=== PATIENT | male | born 1995 | race African-American/Black ===

== ENCOUNTER 2020-07-28 20:21 | Emergency (ER) | payer OTHER ==
[~2020-07-28] VITALS: Ht 172.7 cm; Wt 80.0 kg
[2020-07-28 20:54] VITALS: BP 124/81
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
== END 2020-07-28 23:02 | disposition home or self-care (01) ==
LOC: ER 20:21
DX: G89.11 Acute pain due to trauma (principal); R51.9 Headache, unspecified; M54.2 Cervicalgia; J45.909 Unspecified asthma, uncomplicated; V49.9XXA Car occupant (driver) (passenger) injured in unspecified traffic accident, initial encounter; Y93.89 Activity, other specified; Y92.413 State road as the place of occurrence of the external cause; Y99.8 Other external cause status
CPT/HCPCS: 99282

== ENCOUNTER 2020-08-25 11:31 | Inpatient (IN) | payer SELFPAY ==
[~2020-08-25] VITALS: Ht 175.3 cm; Wt 81.5 kg
--- NOTE | 2020-08-25 11:47 | PHYS DOC ---
Past Medical History Past Medical History: Asthma Past Surgical History: No Surgical History Smoking Status: Never Smoker Alcohol Use: None General Adult EDM: Chief Complaint: ASTHMA HPI: HPI: Patient is a 25 year old male presents emergency department acute exacerbation of asthma. Patient states it woke him up at 3 AM today. Patient states he has had 3-4 nebulizer treatments throughout the day. Patient states that he is not getting any better with his nebulizer treatments. Patient states he has never been admitted to the hospital before for his asthma. Patient states usually comes to the ER and receives a few breathing treatments and some prednisone and is at home with prednisone after he is feeling better. Patient denies any cough, chest congestion, chest pains at this time. Patient states he is only short of breath as related to his asthma exacerbation. Patient denies any recent fever or chills, denies any other physical complaints or physical co ncerns. Review of Systems: Review of Systems: 14 body systems of review of systems have been reviewed. See HPI for pertinent positives and negative responses, otherwise all other systems are negative, nonpertinent or noncontributory. Heart Score: Risk Factors: Risk Factors: DM, Current or recent (<one month) smoker, HTN, HLP, family history of CAD, obesity. Risk Scores: Score 0 - 3: 2.5% MACE over next 6 weeks - Discharge Home Score 4 - 6: 20.3% MACE over next 6 weeks - Admit for Clinical Observation Score 7 - 10: 72.7% MACE over next 6 weeks - Early Invasive Strategies Allergies: Allergies: Allergies Coded Allergies Type Severity Reaction Last Updated Verified No Known Drug Allergies 08/25/20 No Physical Exam: PE: Constitutional: Well developed, well nourished, patient in moderate respiratory distress, he is not tripoding, patient is speaking in full sentences, non-toxic appearance. HENT: Normocephalic, atraumatic, bilateral external ears normal, oropharynx moist, no oral exudates, nose normal. Eyes: PERRLA, EOMI, conjunctiva normal, no discharge. Neck: Normal range of motion, no tenderness, supple, no stridor. Cardiovascular:Heart rate regular rhythm, no murmur Lungs & Thorax: Audible I/E wheezing, per auscultation I/E wheezing bilateral upper lobes, lower lung negrete lung sounds diminished. Abdomen: Bowel sounds normal, soft, no tenderness, no masses, no pulsatile masses. Skin: Warm, dry, no erythema, no rash. Back: No tenderness, no CVA tenderness. Extremities: No tenderness, no cyanosis, no clubbing, ROM intact, no edema. Neurologic: Alert and oriented X 3, normal motor function, normal sensory function, no focal deficits noted. Psychologic: Affect normal, judgement normal, mood normal. Current Patient Data: Labs: Laboratory Tests Test 08/25/20 11:50 White Blood Count 6.4 x10^3/uL Red Blood Count 6.39 x10^6/uL Hemoglobin 14.8 g/dL Hematocrit 47.4 % Mean Corpuscular Volume 74 fL Mean Corpuscular Hemoglobin 23 pg Mean Corpuscular Hemoglobin Concent 31 g/dL Red Cell Distribution Width 15.2 % Platelet Count 243 x10^3/uL Neutrophils (%) (Auto) 67 % Lymphocytes (%) (Auto) 17 % Monocytes (%) (Auto) 7 % Eosinophils (%) (Auto) 9 % Basophils (%) (Auto) 1 % Neutrophils # (Auto) 4.3 x10^3/uL Lymphocytes # (Auto) 1.1 x10^3/uL Monocytes # (Auto) 0.4 x10^3/uL Eosinophils # (Auto) 0.6 x10^3/uL Basophils # (Auto) 0.0 x10^3/uL Sodium Level 143 mmol/L Potassium Level 4.0 mmol/L Chloride Level 105 mmol/L Carbon Dioxide Level 29 mmol/L Anion Gap 9 Blood Urea Nitrogen 18 mg/dL Creatinine 1.2 mg/dL Estimated GFR (Cockcroft-Gault) 87.9 BUN/Creatinine Ratio 15 Glucose Level 77 mg/dL Lactic Acid Level 3.5 mmol/L Calcium Level 9.4 mg/dL Total Bilirubin 0.4 mg/dL Aspartate Amino Transf (AST/SGOT) 23 U/L Alanine Aminotransferase (ALT/SGPT) 37 U/L Alkaline Phosphatase 57 U/L Total Protein 8.3 g/dL Albumin 3.9 g/dL Albumin/Globulin Ratio 0.9 Current Medications Medications (Trade) Dose Ordered Sig/Giovana Route PRN Reason Start Time Stop Time Status Last Admin Dose Admin Albuterol/ Ipratropium (Duoneb) 3 ml 1X ONCE NEB 08/25/20 12:00 08/25/20 12:01 DC 08/25/20 11:59 Prednisone (Prednisone) 60 mg 1X ONCE PO 08/25/20 12:00 08/25/20 12:01 DC 08/25/20 11:57 Albuterol Sulfate (Ventolin Neb Soln) 2.5 mg 1X ONCE NEB 08/25/20 12:00 08/25/20 12:01 DC 08/25/20 11:59 Albuterol/ Ipratropium (Duoneb) 3 ml STK-MED ONCE .ROUTE 08/25/20 11:51 08/25/20 11:51 DC Albuterol/ Ipratropium (Duoneb) 3 ml 1X ONCE NEB 08/25/20 12:30 08/25/20 12:32 DC 08/25/20 12:47 Albuterol/ Ipratropium (Duoneb) 3 ml 1X ONCE NEB 08/25/20 12:30 08/25/20 12:32 DC 08/25/20 12:30 EKG: EKG: [] Radiology/Procedures: Radiology/Procedures: STATUS: REG ER ORD. PHYSICIAN: WOLF CAUSEY DO REASON: soa PROCEDURE: CHEST AP ONLY XR CHEST 1V INDICATION: Reason: soa / Spl. Instructions: / History: . COMPARISON STUDY: None. FINDINGS: Lungs: Normal lung volume. No pulmonary mass or consolidation. The tracheobronchial tree and hilar structures are normal. Pleura: No pleural effusion or pneumothorax. Heart and Mediastinum: The cardiomediastinal silhouette is normal. The great vessels of the thorax are normal. Bones and Soft Tissues: The bones and soft tissues are within normal limits. IMPRESSION: No acute cardiopulmonary process. Electronically signed by: Angie Hernandez MD (08/25/2020 2:09 PM) [id number] DICTATED and SIGNED BY: ANGIE HERNANDEZ MD DATE: 08/25/20 [id number] 0 Course & Med Decision Making: Course & Med Decision Making Pertinent Labs and Imaging studies reviewed. (See chart for details) 25-year-old male presents emergency department status asthmaticus. Patient stated that he has never been admitted to the hospital for his asthma. Patient was started on A/A nebulizer treatments and given 40 mg of prednisone p.o. Upon reexamination of the patient only minimal improvement. Back to back albuterol nebulizer treatments were ordered. Upon reexamination of the patient, I/E wheezes all lung negrete, patient still in moderate respiratory distress, patient is not hypoxic, patient is tachycardic at a heart rate of 140 most likely related to albuterol and Atrovenkeon ordonez belies her treatments. Discussed with patient possibility of admission, patient states he is amenable for admission to the hospital for his asthma as he states he is not felt this bad in the past and has always had an easy turnaround with his asthma attacks. Hx x-ray was ordered and labs were ordered for admission. Discussed patient case with inpatient management Dr. Busch who agreed to assume patient care to telemetry for the diagnosis of status asthmaticus and tachycardia. Chest x-ray and labs pending at this time. ED bridge orders were initiated and completed, patient awaiting bed on telemetry unit at this time. Dragon Disclaimer: Dragon Disclaimer: This electronic medical record was generated, in whole or in part, using a voice recognition dictation system. Departure Departure Impression: Primary Impression: Status asthmaticus Qualified Codes: J45.42 - Moderate persistent asthma with status asthmaticus Additional Impression: Tachycardia Disposition: ADMITTED INPT THIS HOSP Admitting Physician: HIMS (Admit to Dr. Busch to the telemetry unit) Condition: GUARDED Referrals: NO PCP (PCP) SANTANA MORAN APRN Aug 25, 2020 11:47
[2020-08-25] MEDS ORDERED: IPRATRPIUM/ALBUTEROL 0.5/2.5MG 3 ML NEBU. ONE (11:51)
[2020-08-25] MEDS ORDERED: predniSONE 20 MG TABLET PO ONE (12:00)
[2020-08-25] MEDS ORDERED: IPRATRPIUM/ALBUTEROL 0.5/2.5MG 3 ML NEBU. NEB ONE ×3 (12:00→12:30)
[2020-08-25] MEDS ORDERED: ALBUTEROL SULFATE 2.5 MG/3 ML NEBU. NEB ONE (12:00)
--- NOTE | 2020-08-25 13:19 | PDOC1 ---
History and Physical Date of Admission Date of Admission DATE: 08/25/20 TIME: 13:18 Identification/Chief Complaint Chief Complaint seen in er with status asthmaticus, failed out patient management 25 year old male presents emergency department acute exacerbation of asthma. Patient states it woke him up at 3 AM today. Patient states he has had 3-4 nebulizer treatments throughout the day. Patient states that he is not getting any better with his nebulizer treatments. states usually comes to the ER and receives a few breathing treatments and some prednisone and is at home with prednisone after he is feeling better. denies any cough, chest congestion, chest pains at this time. Patient states he is only short of breath as related to his asthma exacerbation. Patient denies any recent fever or chills, Past Medical History Past Medical History Past Medical History Past Medical History Past Medical History: Asthma Past Surgical History: No Surgical History Smoking Status: Never Smoker Alcohol Use: None FHX HTN Pulmonary: Asthma, Bronchitis Psych: No pertinent hx Rheumatologic: No pertinent hx Infectious disease: No pertinent hx ENT: No pertinent hx Family History Family History: Hypertension Social History Smoke: No ALCOHOL: occassional Drugs: None Current Medications Current Medications Current Medications Albuterol/ Ipratropium (Duoneb) 3 ml 1X ONCE NEB Last administered on 1at 11:59; Start 08/25/20 at 12:00; Stop 08/25/20 at 12:01; Status DC Prednisone (Prednisone) 60 mg 1X ONCE PO Last administered on 08/25/20at 11:57; Start 08/25/20 at 12:00; Stop 08/25/20 at 12:01; Status DC Albuterol Sulfate (Ventolin Neb Soln) 2.5 mg 1X ONCE NEB Last administered on 08/25/20at 11:59; Start 08/25/20 at 12:00; Stop 08/25/20 at 12:01; Status DC Albuterol/ Ipratropium (Duoneb) 3 ml STK-MED ONCE .ROUTE ; Start 08/25/20 at 11:51; Stop 08/25/20 at 11:51; Status DC Albuterol/ Ipratropium (Duoneb) 3 ml 1X ONCE NEB Last administered on 08/25/20at 12:47; Start 08/25/20 at 12:30; Stop 08/25/20 at 12:32; Status DC Albuterol/ Ipratropium (Duoneb) 3 ml 1X ONCE NEB Last administered on 08/25/20at 12:30; Start 08/25/20 at 12:30; Stop 08/25/20 at 12:32; Status DC Allergies Allergies: Coded Allergies: No Known Drug Allergies (Unverified , 08/25/20) ROS Review of System 14 PT ROS OTHERWISE NEG General: YES: Fatigue; No: Chills, Night Sweats, Malaise, Appetite, Other PSYCHOLOGICAL ROS: No: Anxiety, Behavioral Disorder, Concentration difficultie, Decreased libido, Depression, Disorientation, Hallucinations, Hostility, Irritablity, Memory difficulties, Mood Swings, Obsessive thoughts, Physical abuse, Sexual abuse, Sleep disturbances, Suicidal ideation, Other Eyes: No Blurry vision, No Decreased vision, No Double vision, No Dry eyes, No Excessive tearing, No Eye Pain, No Itchy Eyes, No Loss of vision, No Photophobia, No Scotomata, No Uses contacts, No Uses glasses, No Other HEENT: No: Heacaches, Visual Changes, Hearing change, Nasal congestion, Nasal discharge, Oral lesions, Sinus pain, Sore Throat, Epistaxis, Sneezing, Snoring, Tinnitus, Vertigo, Vocal changes, Other ALLERGY AND IMMUNOLOGY: No: Hives, Insect Bite Sensitivity, Itchy/Watery Eyes, Nasal Congestion, Post Nasal Drip, Seasonal Allergies, Other Hematological and Lymphatic: No: Bleeding Problems, Blood Clots, Blood Transfusions, Brusing, Night Sweats, Pallor, Swollen Lymph Nodes, Other ENDOCRINE: No: Breast Changes, Galactorrhea, Hair Pattern Changes, Hot Flashes, Malaise/lethargy, Mood Swings, Palpitations, Polydipsia/polyuria, Skin Changes, Temperature Intolerance, Unexpected Weight Changes, Other Breast: No New/Changing Breast Lumps, No Nipple changes, No Nipple discharge, No Other Respiratory: YES: Shortness of breath, SOB with excertion, Wheezing Cardiovascular: No Chest Pain, No Palpitations, No Orthopnea, No Paroxysmal Noc. Dyspnea, No Edema, No Lt Headedness, No Other Gastrointestinal: No Nausea, No Vomiting, No Abdominal Pain, No Diarrhea, No Constipation, No Melena, No Hematochezia, No Other Genitourinary: No Dysuria, No Frequency, No Incontinence, No Hematuria, No Retention, No Discharge, No Urgency, No Pain, No Flank Pain, No Other, No , No , No , No , No , No , No Neurological: No Behavorial Changes, No Bowel/Bladder ControlChng, No Confusion, No Dizziness, No Gait Disturbance, No Headaches, No Impaired Coord/balance, No Memory Loss, No Numbness/Tingling, No Seizures, No Speech Problems, No Tremors, No Visual Changes, No Weakness, No Other Skin: No Dry Skin, No Eczema, No Hair Changes, No Lumps, No Mole Changes, No Mottling, No Nail Changes, No Pruritus, No Rash, No Skin Lesion Changes, No Other, No Acne Physical Exam Physical Exam Constitutional: Well developed, well nourished, patient in moderate respiratory distress, he is not tripoding, patient is speaking in full sentences, non-toxic appearance. HENT: Normocephalic, atraumatic, bilateral external ears normal, oropharynx moist, no oral exudates, nose normal. Eyes: PERRLA, EOMI, conjunctiva normal, no discharge. Neck: Normal range of motion, no tenderness, supple, no stridor. Cardiovascular:Heart rate regular rhythm, no murmur Lungs & Thorax: Audible I/E wheezing, per auscultation I/E wheezing bilateral upper lobes, lower lung negrete lung sounds diminished. Abdomen: Bowel sounds normal, soft, no tenderness, no masses, no pulsatile masses. Skin: Warm, dry, no erythema, no rash. Back: No tenderness, no CVA tenderness. Extremities: No tenderness, no cyanosis, no clubbing, ROM intact, no edema. Neurologic: Alert and oriented X 3, normal motor function, normal sensory function, no focal deficits noted. Psychologic: Affect normal, judgment normal, mood normal. General: Alert, Oriented X3, Cooperative, moderate distress HEENT: EOMI, Mucous membr. moist/pink Heart: RRR Breasts: Not examined Abdomen: Normal bowel sounds, Soft, No tenderness, No hepatosplenomegaly Rectal Exam: not examined PELVIC: Examination not indicated Extremities: No cyanosis Neuro: Normal speech, Strength at 5/5 X4 ext, Sensation intact, Cranial nerves 3-12 NL Psych/Mental Status: Mental status NL, Mood NL Vitals Vitals Vital Signs Date Time Temp Pulse Resp B/P (MAP) Pulse Ox O2 Delivery O2 Flow Rate FiO2 08/25/20 12:47 Room Air 08/25/20 11:45 98.8 120 28 151/79 (103) 97 98.8 Images Images PATIENT: DEJA GUTIERREZ ACCOUNT: [id number] : 1995 LOCATION: ER AGE: 25 SEX: M EXAM STATUS: REG ER ORD. PHYSICIAN: WOLF CAUSEY DO REASON: soa PROCEDURE: CHEST AP ONLY XR CHEST 1V INDICATION: Reason: soa / Spl. Instructions: / History: . COMPARISON STUDY: None. FINDINGS: Lungs: Normal lung volume. No pulmonary mass or consolidation. The tracheobronchial tree and hilar structures are normal. Pleura: No pleural effusion or pneumothorax. Heart and Mediastinum: The cardiomediastinal silhouette is normal. The great vessels of the thorax are normal. Bones and Soft Tissues: The bones and soft tissues are within normal limits. IMPRESSION: No acute cardiopulmonary process. Electronically signed by: Angie Hernandez MD (08/25/2020 2:09 PM) [id number] DICTATED and SIGNED BY: ANGIE HERNANDEZ MD DATE: 08/25/20 [id number] VTE Prophylaxis Ordered VTE Prophylaxis Devices: Yes VTE Pharmacological Prophylaxi: Yes Assessment/Plan Assessment/Plan impression 1. Status ASTHMATICUS 2. PUI COVID 19 PLAN ADMIT IV STEROID TAPER PULM CONSULT budesonide 0.5 mg bid nebs albuterol q 4 hrs nebs dvt prophylaxis GI PROPHYLAXIS D/W ER DR Justifications for Admission Other Justification ERENDIRA CARTER MD Aug 25, 2020 13:19
[2020-08-25 13:55] LABS: BASO % 1 % (0-3); CALCIUM 9.4 mg/dL (8.5-10.1); CREATININE 1.2 mg/dL (0.7-1.3); EOS # 0.6 x10^3/uL (0.0-0.7); EOS % 9 % (0-3); GFR 87.9; HEMATOCRIT 47.4 % (39.0-53.0); HEMOGLOBIN 14.8 g/dL (13.0-17.5); LYMPH # 1.1 x10^3/uL (1.0-4.8); LYMPH % 17 % (24-48); MEAN CORPUSCULAR HEMOGLOBIN 23 pg (25-35); MEAN CORPUSCULAR HGB CONC 31 g/dL (31-37); MEAN CORPUSCULAR VOLUME 74 fL (79-100); MONO # 0.4 x10^3/uL (0.0-1.1); MONO % 7 % (0-9); NEUT # 4.3 x10^3/uL (1.8-7.7); NEUT % 67 % (31-73); PLATELET COUNT 243 x10^3/uL (140-400); RED BLOOD COUNT 6.39 x10^6/uL (4.30-5.70); RED CELL DISTRIBUTION WIDTH 15.2 % (11.5-14.5); WHITE BLOOD COUNT 6.4 x10^3/uL (4.0-11.0)
[2020-08-25 13:59] LABS: ALBUMIN 3.9 g/dL (3.4-5.0); ALBUMIN/GLOBULIN RATIO 0.9 (1.0-1.7); TOTAL BILIRUBIN 0.4 mg/dL (0.2-1.0); TOTAL PROTEIN 8.3 g/dL (6.4-8.2)
--- NOTE | 2020-08-25 14:11 | RAD ---
XR CHEST 1V INDICATION: Reason: soa / Spl. Instructions: / History: . COMPARISON STUDY: None. FINDINGS: Lungs: Normal lung volume. No pulmonary mass or consolidation. The tracheobronchial tree and hilar st ructures are normal. Pleura: No pleural effusion or pneumothorax. Heart and Mediastinum: The cardiomediastinal silhouette is normal. The great vessels of the thorax ar e normal. Bones and Soft Tissues: The bones and soft tissues are within normal limits. IMPRESSION: No acute cardiopulmonary process. Electronically signed by: Hayden Hernandez MD (08/25/2020 2:09 PM) [id number]
[2020-08-25 15:30] VITALS: BP 116/63
[2020-08-25] MEDS ORDERED: ACETAMINOPHEN 325 MG TABLET. PO PRN (15:30)
[2020-08-25] MEDS ORDERED: ALBUTEROL SULFATE 2.5 MG/3 ML NEBU. NEB PRN (15:30)
[2020-08-25] MEDS ORDERED: ONDANSETRON PF 4 MG/2 ML VIAL. IV PRN (15:30)
[2020-08-25] MEDS ORDERED: cloNIDine HCL 0.1 MG TABLET PO PRN (15:30)
[2020-08-25] MEDS ORDERED: guaiFENesin ORAL 200 MG/10 ML LIQUID. PO PRN (15:30)
[2020-08-25] MEDS ORDERED: MAG HYDROX/ALUMINUM HYD/SIMETH 30 ML ORAL.SUSP PO PRN (15:30)
[2020-08-25] MEDS ORDERED: SODIUM PHOSPHATES 19/7GM 133 ML ENEMA. PR PRN (15:30)
[2020-08-25] MEDS ORDERED: 0.9 % SODIUM CHLORIDE 10 ML DISP.SYRIN. IV PRN (15:30)
[2020-08-25] MEDS ORDERED: DOCUSATE SODIUM 100 MG CAPSULE. PO PRN (15:30)
[2020-08-25] MEDS: IV NORMAL SALINE 1000ML BAG 1,000 ML IV SCH (15:57)
[2020-08-25 19:00] VITALS: BP 134/88
--- NOTE | 2020-08-25 19:02 | CONS ---
DATE OF CONSULTATION: 08/25/2020 PULMONARY CONSULTATION ATTENDING PHYSICIAN: Dr. Delfino Busch. REASON FOR CONSULTATION: Asthma exacerbation. HISTORY OF PRESENT ILLNESS: The patient is a 25-year-old male with history of asthma as a child. He said that he had no problem during his adult life. He woke up 3:00 in the morning, was complaining of shortness of breath and wheezing. He did nebulizer treatments throughout the day, but it did not improve. As a result, he was seen in the Emergency Room where breathing treatments were given to him. He states he is feeling much better. He has a mild postnasal drainage, which is now resolved. He says he does not have any cough, chest pain, no syncope. He has not had any hospitalizations since his childhood. His chest x-ray did not reveal any infiltrate. He wants to go home as he has 3 kids. His COVID test is pending. PAST MEDICAL HISTORY: History of asthma. PAST SURGICAL HISTORY: None. SOCIAL HISTORY: Nonsmoker. ALLERGIES: None. MEDICATIONS: Reviewed as listed in the [facility] including IV Solu-Medrol and albuterol nebs. REVIEW OF SYSTEMS: Ten-point system obtained. Pertinent positives discussed in my history of present illness, otherwise noncontributory. All systems that were negative were reviewed as well. SOCIAL HISTORY: Nonsmoker. PHYSICAL EXAMINATION: VITAL SIGNS: Reviewed. Afebrile, blood pressure stable, pulse oximetry 98% on room air. GENERAL: Visual exam done via telemedicine. No obvious respiratory distress. EXTREMITIES: No leg edema, no skin rash. Chest x-ray is clear. LABORATORY DATA: Reviewed. White cell count 6.4, hemoglobin 14.8 and platelets are 243. IMPRESSION: 1. The patient with history of asthma as a child, but never had any problem in adult life. Comes in with asthma exacerbation without any obvious trigger. No clinical suspicion for COVID. No pneumonia or acute bronchitis. Clinically much better after nebulizer treatments. He wants to go home to be with his 3 kids. 2. No significant tobacco history. RECOMMENDATIONS: 1. From a pulmonary standpoint, he is doing well. He could be discharged home on his albuterol nebulizer and a tapering dose of prednisone. 2. The patient wants to go home as he has 3 kids to take care of. 3. I have discussed with RN, who can communicate to the patient's hospitalist and he is cleared lung coburn to be discharged. AVI MCGEE MD DR: DAKSHA/nolberto JOB#: [id number] / [id number]
[2020-08-25] MEDS ORDERED: IV NORMAL SALINE 1000ML BAG 1,000 ML IV ONE (19:15)
[2020-08-25] MEDS: methylPREDNISolone SOD SUCC PF 125 MG/2 ML VIAL. IV SCH (20:35)
[2020-08-25] MEDS ORDERED: ENOXAPARIN 40 MG/0.4 ML SYRINGE. SQ SCH (21:00)
[2020-08-25 23:00] VITALS: BP 135/80
[2020-08-26] MEDS: IV NORMAL SALINE 1000ML BAG 1,000 ML IV SCH ×2 (01:30→11:29)
[2020-08-26 03:08] LABS: BILIRUBIN,URINE NEGATIVE (NEG); CLARITY,URINE CLEAR; COLOR,URINE YELLOW; NITRITE,URINE NEGATIVE (NEG); PROTEIN,URINE NEGATIVE (NEG-TRACE); UROBILINOGEN,URINE 0.2 mg/dL (0.2 mg/dL)
[2020-08-26 03:14] LABS: BARBITURATES NEG (NEG); BENZODIAZEPINES NEG (NEG); CANNABINOIDS POS (NEG); COCAINE NEG (NEG); METHADONE NEG (NEG); OPIATES NEG (NEG); PHENCYCLIDINE NEG (NEG)
[2020-08-26 03:16] VITALS: BP 155/75
[2020-08-26 03:18] LABS: BACTERIA,URINE 0 /HPF (0-FEW); RBC,URINE 0 /HPF (0-2); WBC,URINE 0 /HPF (0-4)
[2020-08-26 03:22] LABS: AMPHETAMINE/METHAMPHETAMINE NEG (NEG)
[2020-08-26] MEDS: methylPREDNISolone SOD SUCC PF 125 MG/2 ML VIAL. IV SCH (06:25)
[2020-08-26 07:14] VITALS: BP 130/69
[2020-08-26 11:14] VITALS: BP 152/76
--- NOTE | 2020-08-26 11:17 | PDOC ---
PROGRESS NOTES Date of Service: DATE: 08/26/20 TIME: 11:16 Chief Complaint Chief Complaint VTE Prophylaxis Ordered VTE Prophylaxis Devices: Yes VTE Pharmacological Prophylaxi: Yes DISCHARGE DX Assessment/Plan impression 1. Status ASTHMATICUS 2. PUI COVID 19 3. LACTIC ACIDOSIS FROM DEHYDRATION, CONT IV FLUID SUPPORT, DOSE ZITHROMAX 4. DEHYDRATION 5. SVT from dehydration PLAN ADMIT PO STEROID TAPER PULM CONSULT budesonide 0.5 mg bid nebs albuterol q 4 hrs nebs dvt prophylaxis GI PROPHYLAXIS iv fluid support 08/26 INSISTS ON DISCHARGE TODAY D/C PLANNING 23 MIN D/W RN Justifications for Admission Justifications for Admission Other Justification History of Present Illness History of Present Illness Identification/Chief Complaint Chief Complaint seen in er with status asthmaticus, failed out patient management 25 year old male presents emergency department acute exacerbation of asthma. Patient states it woke him up at 3 AM today. Patient states he has had 3-4 nebulizer treatments throughout the day. Patient states that he is not getting any better with his nebulizer treatments. states usually comes to the ER and receives a few breathing treatments and some prednisone and is at home with prednisone after he is feeling better. denies any cough, chest congestion, chest pains at this time. Patient states he is only short of breath as related to his asthma exacerbation. Patient denies any recent fever or chills, Past Medical History Past Medical History Past Medical History Past Medical History Past Medical History: Asthma Past Surgical History: No Surgical History Smoking Status: Never Smoker Alcohol Use: None FHX HTN Pulmonary: Asthma, Bronchitis Psych: No pertinent hx Rheumatologic: No pertinent hx Infectious disease: No pertinent hx ENT: No pertinent hx Family History Family History: Hypertension Social History Smoke: No ALCOHOL: occassional Drugs: None Vitals Vitals Vital Signs Date Time Temp Pulse Resp B/P (MAP) Pulse Ox O2 Delivery O2 Flow Rate FiO2 08/26/20 08:00 Room Air 08/26/20 07:14 96.4 107 16 130/69 (89) 98 96.4 Physical Exam General: Alert, Oriented X3, Cooperative, No acute distress Heart: Regular rate, No murmurs Lungs: Clear Abdomen: Normal bowel sounds, Soft, No tenderness, No hepatosplenomegaly Extremities: No cyanosis Skin: No rashes Labs LABS Laboratory Tests Test 08/25/20 11:50 08/25/20 18:10 08/26/20 02:49 08/26/20 10:23 White Blood Count 6.4 x10^3/uL (4.0-11.0) Red Blood Count 6.39 x10^6/uL (4.30-5.70) Hemoglobin 14.8 g/dL (13.0-17.5) Hematocrit 47.4 % (39.0-53.0) Mean Corpuscular Volume 74 fL (79-100) Mean Corpuscular Hemoglobin 23 pg (25-35) Mean Corpuscular Hemoglobin Concent 31 g/dL (31-37) Red Cell Distribution Width 15.2 % (11.5-14.5) Platelet Count 243 x10^3/uL (140-400) Neutrophils (%) (Auto) 67 % (31-73) Lymphocytes (%) (Auto) 17 % (24-48) Monocytes (%) (Auto) 7 % (0-9) Eosinophils (%) (Auto) 9 % (0-3) Basophils (%) (Auto) 1 % (0-3) Neutrophils # (Auto) 4.3 x10^3/uL (1.8-7.7) Lymphocytes # (Auto) 1.1 x10^3/uL (1.0-4.8) Monocytes # (Auto) 0.4 x10^3/uL (0.0-1.1) Eosinophils # (Auto) 0.6 x10^3/uL (0.0-0.7) Basophils # (Auto) 0.0 x10^3/uL (0.0-0.2) D-Dimer (Kitty) 0.39 ug/mlFEU (0.00-0.50) Sodium Level 143 mmol/L (136-145) Potassium Level 4.0 mmol/L (3.5-5.1) Chloride Level 105 mmol/L (98-107) Carbon Dioxide Level 29 mmol/L (21-32) Anion Gap 9 (6-14) Blood Urea Nitrogen 18 mg/dL (8-26) Creatinine 1.2 mg/dL (0.7-1.3) Estimated GFR (Cockcroft-Gault) 87.9 BUN/Creatinine Ratio 15 (6-20) Glucose Level 77 mg/dL (70-99) Lactic Acid Level 3.5 mmol/L (0.4-2.0) 6.8 mmol/L (0.4-2.0) 1.8 mmol/L (0.4-2.0) Calcium Level 9.4 mg/dL (8.5-10.1) Total Bilirubin 0.4 mg/dL (0.2-1.0) Aspartate Amino Transf (AST/SGOT) 23 U/L (15-37) Alanine Aminotransferase (ALT/SGPT) 37 U/L (16-63) Alkaline Phosphatase 57 U/L (46-116) Total Protein 8.3 g/dL (6.4-8.2) Albumin 3.9 g/dL (3.4-5.0) Albumin/Globulin Ratio 0.9 (1.0-1.7) Urine Collection Type Unknown Urine Color Yellow Urine Clarity Clear Urine pH 6.0 (<5.0-8.0) Urine Specific Roslyn >=1.030 (1.000-1.030) Urine Protein Negative mg/dL (NEG-TRACE) Urine Glucose (UA) Negative mg/dL (NEG) Urine Ketones (Stick) 15 mg/dL (NEG) Urine Blood Negative (NEG) Urine Nitrite Negative (NEG) Urine Bilirubin Negative (NEG) Urine Urobilinogen Dipstick 0.2 mg/dL (0.2 mg/dL) Urine Leukocyte Esterase Negative (NEG) Urine RBC 0 /HPF (0-2) Urine WBC 0 /HPF (0-4) Urine Squamous Epithelial Cells Few /LPF Urine Bacteria 0 /HPF (0-FEW) Urine Mucus Slight /LPF Urine Opiates Screen Neg (NEG) Urine Methadone Screen Neg (NEG) Urine Barbiturates Neg (NEG) Urine Phencyclidine Screen Neg (NEG) Urine Amphetamine/Methamphetamine Neg (NEG) Urine Benzodiazepines Screen Neg (NEG) Urine Cocaine Screen Neg (NEG) Urine Cannabinoids Screen Pos (NEG) Urine Ethyl Alcohol Neg (NEG) Assessment and Plan Assessmemt and Plan Problems Medical Problems: (1) Status asthmaticus Status: Acute (2) Tachycardia Status: Acute Comment Review of Relevant I have reviewed the following items sukhdeep (where applicable) has been applied. Labs Laboratory Tests Test 08/25/20 11:50 08/25/20 18:10 08/26/20 02:49 08/26/20 10:23 White Blood Count 6.4 x10^3/uL (4.0-11.0) Red Blood Count 6.39 x10^6/uL (4.30-5.70) Hemoglobin 14.8 g/dL (13.0-17.5) Hematocrit 47.4 % (39.0-53.0) Mean Corpuscular Volume 74 fL (79-100) Mean Corpuscular Hemoglobin 23 pg (25-35) Mean Corpuscular Hemoglobin Concent 31 g/dL (31-37) Red Cell Distribution Width 15.2 % (11.5-14.5) Platelet Count 243 x10^3/uL (140-400) Neutrophils (%) (Auto) 67 % (31-73) Lymphocytes (%) (Auto) 17 % (24-48) Monocytes (%) (Auto) 7 % (0-9) Eosinophils (%) (Auto) 9 % (0-3) Basophils (%) (Auto) 1 % (0-3) Neutrophils # (Auto) 4.3 x10^3/uL (1.8-7.7) Lymphocytes # (Auto) 1.1 x10^3/uL (1.0-4.8) Monocytes # (Auto) 0.4 x10^3/uL (0.0-1.1) Eosinophils # (Auto) 0.6 x10^3/uL (0.0-0.7) Basophils # (Auto) 0.0 x10^3/uL (0.0-0.2) D-Dimer (Kitty) 0.39 ug/mlFEU (0.00-0.50) Sodium Level 143 mmol/L (136-145) Potassium Level 4.0 mmol/L (3.5-5.1) Chloride Level 105 mmol/L (98-107) Carbon Dioxide Level 29 mmol/L (21-32) Anion Gap 9 (6-14) Blood Urea Nitrogen 18 mg/dL (8-26) Creatinine 1.2 mg/dL (0.7-1.3) Estimated GFR (Cockcroft-Gault) 87.9 BUN/Creatinine Ratio 15 (6-20) Glucose Level 77 mg/dL (70-99) Lactic Acid Level 3.5 mmol/L (0.4-2.0) 6.8 mmol/L (0.4-2.0) 1.8 mmol/L (0.4-2.0) Calcium Level 9.4 mg/dL (8.5-10.1) Total Bilirubin 0.4 mg/dL (0.2-1.0) Aspartate Amino Transf (AST/SGOT) 23 U/L (15-37) Alanine Aminotransferase (ALT/SGPT) 37 U/L (16-63) Alkaline Phosphatase 57 U/L (46-116) Total Protein 8.3 g/dL (6.4-8.2) Albumin 3.9 g/dL (3.4-5.0) Albumin/Globulin Ratio 0.9 (1.0-1.7) Urine Collection Type Unknown Urine Color Yellow Urine Clarity Clear Urine pH 6.0 (<5.0-8.0) Urine Specific Roslyn >=1.030 (1.000-1.030) Urine Protein Negative mg/dL (NEG-TRACE) Urine Glucose (UA) Negative mg/dL (NEG) Urine Ketones (Stick) 15 mg/dL (NEG) Urine Blood Negative (NEG) Urine Nitrite Negative (NEG) Urine Bilirubin Negative (NEG) Urine Urobilinogen Dipstick 0.2 mg/dL (0.2 mg/dL) Urine Leukocyte Esterase Negative (NEG) Urine RBC 0 /HPF (0-2) Urine WBC 0 /HPF (0-4) Urine Squamous Epithelial Cells Few /LPF Urine Bacteria 0 /HPF (0-FEW) Urine Mucus Slight /LPF Urine Opiates Screen Neg (NEG) Urine Methadone Screen Neg (NEG) Urine Barbiturates Neg (NEG) Urine Phencyclidine Screen Neg (NEG) Urine Amphetamine/Methamphetamine Neg (NEG) Urine Benzodiazepines Screen Neg (NEG) Urine Cocaine Screen Neg (NEG) Urine Cannabinoids Screen Pos (NEG) Urine Ethyl Alcohol Neg (NEG) Laboratory Tests Test 1/11/21 11:50 08/25/20 18:10 08/26/20 02:49 08/26/20 10:23 White Blood Count 6.4 x10^3/uL (4.0-11.0) Red Blood Count 6.39 x10^6/uL (4.30-5.70) Hemoglobin 14.8 g/dL (13.0-17.5) Hematocrit 47.4 % (39.0-53.0) Mean Corpuscular Volume 74 fL (79-100) Mean Corpuscular Hemoglobin 23 pg (25-35) Mean Corpuscular Hemoglobin Concent 31 g/dL (31-37) Red Cell Distribution Width 15.2 % (11.5-14.5) Platelet Count 243 x10^3/uL (140-400) Neutrophils (%) (Auto) 67 % (31-73) Lymphocytes (%) (Auto) 17 % (24-48) Monocytes (%) (Auto) 7 % (0-9) Eosinophils (%) (Auto) 9 % (0-3) Basophils (%) (Auto) 1 % (0-3) Neutrophils # (Auto) 4.3 x10^3/uL (1.8-7.7) Lymphocytes # (Auto) 1.1 x10^3/uL (1.0-4.8) Monocytes # (Auto) 0.4 x10^3/uL (0.0-1.1) Eosinophils # (Auto) 0.6 x10^3/uL (0.0-0.7) Basophils # (Auto) 0.0 x10^3/uL (0.0-0.2) D-Dimer (Kitty) 0.39 ug/mlFEU (0.00-0.50) Sodium Level 143 mmol/L (136-145) Potassium Level 4.0 mmol/L (3.5-5.1) Chloride Level 105 mmol/L (98-107) Carbon Dioxide Level 29 mmol/L (21-32) Anion Gap 9 (6-14) Blood Urea Nitrogen 18 mg/dL (8-26) Creatinine 1.2 mg/dL (0.7-1.3) Estimated GFR (Cockcroft-Gault) 87.9 BUN/Creatinine Ratio 15 (6-20) Glucose Level 77 mg/dL (70-99) Lactic Acid Level 3.5 mmol/L (0.4-2.0) 6.8 mmol/L (0.4-2.0) 1.8 mmol/L (0.4-2.0) Calcium Level 9.4 mg/dL (8.5-10.1) Total Bilirubin 0.4 mg/dL (0.2-1.0) Aspartate Amino Transf (AST/SGOT) 23 U/L (15-37) Alanine Aminotransferase (ALT/SGPT) 37 U/L (16-63) Alkaline Phosphatase 57 U/L (46-116) Total Protein 8.3 g/dL (6.4-8.2) Albumin 3.9 g/dL (3.4-5.0) Albumin/Globulin Ratio 0.9 (1.0-1.7) Urine Collection Type Unknown Urine Color Yellow Urine Clarity Clear Urine pH 6.0 (<5.0-8.0) Urine Specific Roslyn >=1.030 (1.000-1.030) Urine Protein Negative mg/dL (NEG-TRACE) Urine Glucose (UA) Negative mg/dL (NEG) Urine Ketones (Stick) 15 mg/dL (NEG) Urine Blood Negative (NEG) Urine Nitrite Negative (NEG) Urine Bilirubin Negative (NEG) Urine Urobilinogen Dipstick 0.2 mg/dL (0.2 mg/dL) Urine Leukocyte Esterase Negative (NEG) Urine RBC 0 /HPF (0-2) Urine WBC 0 /HPF (0-4) Urine Squamous Epithelial Cells Few /LPF Urine Bacteria 0 /HPF (0-FEW) Urine Mucus Slight /LPF Urine Opiates Screen Neg (NEG) Urine Methadone Screen Neg (NEG) Urine Barbiturates Neg (NEG) Urine Phencyclidine Screen Neg (NEG) Urine Amphetamine/Methamphetamine Neg (NEG) Urine Benzodiazepines Screen Neg (NEG) Urine Cocaine Screen Neg (NEG) Urine Cannabinoids Screen Pos (NEG) Urine Ethyl Alcohol Neg (NEG) Medications Current Medications Albuterol/ Ipratropium (Duoneb) 3 ml 1X ONCE NEB Last administered on 08/25/20at 11:59; Start 08/25/20 at 12:00; Stop 08/25/20 at 12:01; Status DC Prednisone (Prednisone) 60 mg 1X ONCE PO Last administered on 08/25/20at 11:57; Start 08/25/20 at 12:00; Stop 08/25/20 at 12:01; Status DC Albuterol Sulfate (Ventolin Neb Soln) 2.5 mg 1X ONCE NEB Last administered on 08/25/20at 11:59; Start 08/25/20 at 12:00; Stop 08/25/20 at 12:01; Status DC Albuterol/ Ipratropium (Duoneb) 3 ml STK-MED ONCE .ROUTE ; Start 08/25/20 at 11:51; Stop 08/25/20 at 11:51; Status DC Albuterol/ Ipratropium (Duoneb) 3 ml 1X ONCE NEB Last administered on 08/25/20at 12:47; Start 08/25/20 at 12:30; Stop 08/25/20 at 12:32; Status DC Albuterol/ Ipratropium (Duoneb) 3 ml 1X ONCE NEB Last administered on 08/25/20at 12:30; Start 08/25/20 at 12:30; Stop 08/25/20 at 12:32; Status DC Sodium Chloride (Normal Saline Flush) 3 ml QSHIFT PRN IV AFTER MEDS AND BLOOD DRAWS; Start 08/25/20 at 15:30 Sodium Chloride 1,000 ml @ 100 mls/hr Q10H IV Last administered on 08/26/20at 01:30; Start 08/25/20 at 15:30 Ondansetron HCl (Zofran) 4 mg PRN Q4HRS PRN IV NAUSEA/VOMITING; Start 08/25/20 at 15:30 Acetaminophen (Tylenol) 650 mg PRN Q4HRS PRN PO TEMP OVER 100.4F OR MILD PAIN; Start 08/25/20 at 15:30 Al Hydroxide/Mg Hydroxide (Mylanta Plus Xs) 30 ml PRN DAILY PRN PO HEARTBURN / GAS; Start 08/25/20 at 15:30 Clonidine HCl (Catapres) 0.1 mg PRN Q6HRS PRN PO SBP>160 OR DBP>90; Start 08/25/20 at 15:30 Sodium Monofluorophosphate (Fleet Adult) 133 ml PRN DAILY PRN [place] CONSTIPATION; Start 08/25/20 at 15:30 Docusate Sodium (Colace) 100 mg PRN BID PRN PO HARD STOOLS; Start 08/25/20 at 15:30 Albuterol Sulfate (Ventolin Neb Soln) 2.5 mg PRN Q4HRS PRN NEB SHORTNESS OF BREATH; Start 08/25/20 at 15:30 Guaifenesin (Robitussin) 200 mg PRN Q4HRS PRN PO COUGH; Start 08/25/20 at 15:30 Enoxaparin Sodium (Lovenox 40mg Syringe) 40 mg Q24H SQ Last administered on 08/25/20at 20:36; Start 08/25/20 at 21:00 Methylprednisolone Sodium Succinate (SOLU-Medrol 125MG VIAL) 125 mg Q8HRS IV Last administered on 08/26/20at 06:25; Start 08/25/20 at 22:00 Sodium Chloride 1,000 ml @ 999 mls/hr 1X ONCE IV Last administered on 08/25/20at 20:35; Start 08/25/20 at 19:15; Stop 08/25/20 at 20:15; Status DC Vitals/I & O Vital Sign - Last 24 Hours 08/25/20 08/25/20 08/25/20 08/25/20 11:45 11:55 12:00 12:11 Temp 98.8 98.8 Pulse 120 118 Resp 28 B/P (MAP) 151/79 (103) 133/100 (111) Pulse Ox 97 99 O2 Delivery Room Air Room Air Room Air 08/25/20 08/25/20 08/25/20 08/25/20 12:41 12:45 12:47 13:11 Pulse 112 138 Resp 24 B/P (MAP) 133/81 (98) 136/79 (98) Pulse Ox 99 98 O2 Delivery Room Air Room Air 08/25/20 08/25/20 08/25/20 08/25/20 13:41 15:30 19:00 20:00 Temp 98.6 96.5 98.6 96.5 Pulse 126 113 126 Resp 20 14 10 B/P (MAP) 134/68 (90) 116/63 (80) 134/88 (103) Pulse Ox 96 98 98 O2 Delivery Room Air Room Air Room Air 08/25/20 08/26/20 08/26/20 08/26/20 23:00 03:16 07:14 08:00 Temp 97.5 97.1 96.4 97.5 97.1 96.4 Pulse 121 95 107 Resp 16 12 16 B/P (MAP) 135/80 (98) 155/75 (101) 130/69 (89) Pulse Ox 95 96 98 O2 Delivery Room Air Room Air Room Air Room Air Intake and Output 08/25/20 08/25/20 08/26/20 15:00 23:00 07:00 Intake Total 200 ml 0 ml Output Total 1 ml Balance 199 ml 0 ml Justicifation of Admission Dx: Justifications for Admission: Justification of Admission Dx: No ERENDIRA CARTER MD Aug 26, 2020 11:17
[2020-08-26] MEDS ORDERED: AZITHRMYCN 500MG IVPB FOR OMNI 250 ML IV ONE (11:30)
[2020-08-26] MEDS: AZITHROMYCIN 500 MG in IV NORMAL SALINE 250ML 250 ML IV SCH ×2 (11:34→11:55)
--- NOTE | 2020-08-26 11:57 | PDOC3 ---
Discharge Summary Date of Admission: Aug 25, 2020 Date of Discharge: Aug 26, 2020 Follow-Up: 3-5 days Admitting Diagnosis comment: DISCHARGE DX Assessment/Plan impression 1. Status ASTHMATICUS 2. PUI COVID 19 3. LACTIC ACIDOSIS FROM DEHYDRATION, CONT IV FLUID SUPPORT, DOSE ZITHROMAX 4. DEHYDRATION 5. SVT from dehydration PLAN ADMIT PO STEROID TAPER PULM CONSULT budesonide 0.5 mg bid nebs albuterol q 4 hrs nebs dvt prophylaxis GI PROPHYLAXIS iv fluid support 08/26 INSISTS ON DISCHARGE TODAY D/C PLANNING 23 MIN D/W RN Justifications for Admission Justifications for Admission Other Justification History of Present Illness History of Present Illness Identification/Chief Complaint Chief Complaint seen in er with status asthmaticus, failed out patient management 25 year old male presents emergency department acute exacerbation of asthma. Patient states it woke him up at 3 AM today. Patient states he has had 3-4 nebulizer treatments throughout the day. Patient states that he is not getting any better with his nebulizer treatments. states usually comes to the ER and receives a few breathing treatments and some prednisone and is at home with prednisone after he is feeling better. denies any cough, chest congestion, chest pains at this time. Patient states he is only short of breath as related to his asthma exacerbation. Patient denies any recent fever or chills, Past Medical History Past Medical History Past Medical History Past Medical History Past Medical History: Asthma Past Surgical History: No Surgical History Smoking Status: Never Smoker Alcohol Use: None FHX HTN Pulmonary: Asthma, Bronchitis Psych: No pertinent hx Rheumatologic: No pertinent hx Infectious disease: No pertinent hx ENT: No pertinent hx Family History Family History: Hypertension Social History Smoke: No ALCOHOL: occassional Drugs: None Vitals Vitals Vital Signs Date Time Temp Pulse Resp B/P (MAP) Pulse Ox O2 Delivery O2 Flow Rate FiO2 08/26/20 08:00 Room Air 1/12/21 07:14 96.4 107 16 130/69 (90) 98 96.4 Physical Exam General: Alert, Oriented X3, Cooperative, No acute distress Heart: Regular rate, No murmurs Lungs: Clear Abdomen: Normal bowel sounds, Soft, No tenderness, No hepatosplenomegaly Extremities: No cyanosis Skin: No rashes FINAL DIAGNOSIS Problems Medical Problems: (1) Status asthmaticus Status: Acute (2) Tachycardia Status: Acute Brief Hospital Course Mr. Gardner is a 25 old [sex] who presented with [ SEVERE ASTHMA ATTACK ] CONDITION AT DISCHARGE: Improved Discharge Medications Current Medications Albuterol/ Ipratropium (Duoneb) 3 ml 1X ONCE NEB Last administered on 08/25/20at 11:59; Start 08/25/20 at 12:00; Stop 08/25/20 at 12:01; Status DC Prednisone (Prednisone) 60 mg 1X ONCE PO Last administered on 08/25/20at 11:57; Start 08/25/20 at 12:00; Stop 08/25/20 at 12:01; Status DC Albuterol Sulfate (Ventolin Neb Soln) 2.5 mg 1X ONCE NEB Last administered on 08/25/20at 11:59; Start 08/25/20 at 12:00; Stop 08/25/20 at 12:01; Status DC Albuterol/ Ipratropium (Duoneb) 3 ml STK-MED ONCE .ROUTE ; Start 08/25/20 at 11:51; Stop 08/25/20 at 11:51; Status DC Albuterol/ Ipratropium (Duoneb) 3 ml 1X ONCE NEB Last administered on 08/25/20at 12:47; Start 08/25/20 at 12:30; Stop 08/25/20 at 12:32; Status DC Albuterol/ Ipratropium (Duoneb) 3 ml 1X ONCE NEB Last administered on 08/25/20at 12:30; Start 08/25/20 at 12:30; Stop 08/25/20 at 12:32; Status DC Sodium Chloride (Normal Saline Flush) 3 ml QSHIFT PRN IV AFTER MEDS AND BLOOD DRAWS; Start 08/25/20 at 15:30 Sodium Chloride 1,000 ml @ 175 mls/hr Q5H43M IV Last administered on 08/26/20at 01:30; Start 08/25/20 at 15:30 Ondansetron HCl (Zofran) 4 mg PRN Q4HRS PRN IV NAUSEA/VOMITING; Start 08/25/20 at 15:30 Acetaminophen (Tylenol) 650 mg PRN Q4HRS PRN PO TEMP OVER 100.4F OR MILD PAIN; Start 08/25/20 at 15:30 Al Hydroxide/Mg Hydroxide (Mylanta Plus Xs) 30 ml PRN DAILY PRN PO HEARTBURN / GAS; Start 08/25/20 at 15:30 Clonidine HCl (Catapres) 0.1 mg PRN Q6HRS PRN PO SBP>160 OR DBP>90; Start 08/25/20 at 15:30 Sodium Monofluorophosphate (Fleet Adult) 133 ml PRN DAILY PRN [place] CONSTIPATION; Start 08/25/20 at 15:30 Docusate Sodium (Colace) 100 mg PRN BID PRN PO HARD STOOLS; Start 08/25/20 at 15:30 Albuterol Sulfate (Ventolin Neb Soln) 2.5 mg PRN Q4HRS PRN NEB SHORTNESS OF BREATH; Start 08/25/20 at 15:30 Guaifenesin (Robitussin) 200 mg PRN Q4HRS PRN PO COUGH; Start 08/25/20 at 15:30 Enoxaparin Sodium (Lovenox 40mg Syringe) 40 mg Q24H SQ Last administered on 08/25/20at 20:36; Start 08/25/20 at 21:00 Methylprednisolone Sodium Succinate (SOLU-Medrol 125MG VIAL) 125 mg Q8HRS IV Last administered on 08/26/20at 06:25; Start 08/25/20 at 22:00 Sodium Chloride 1,000 ml @ 999 mls/hr 1X ONCE IV Last administered on 08/25/20at 20:35; Start 08/25/20 at 19:15; Stop 08/25/20 at 20:15; Status DC Azithromycin 250 ml @ 250 mls/hr 1X ONCE IV ; Start 08/26/20 at 11:30; Stop 08/26/20 at 12:29; Status UNV Azithromycin 500 mg/Sodium Chloride 250 ml @ 250 mls/hr Q24H IV ; Start 08/26/20 at 12:00 Vital Signs Vital Signs Date Time Temp Pulse Resp B/P (MAP) Pulse Ox O2 Delivery O2 Flow Rate FiO2 08/26/20 08:00 Room Air 08/26/20 07:14 96.4 107 16 130/69 (89) 98 96.4 Labs Laboratory Tests Test 08/25/20 11:50 08/25/20 18:10 08/26/20 02:49 08/26/20 10:23 White Blood Count 6.4 x10^3/uL (4.0-11.0) Red Blood Count 6.39 x10^6/uL (4.30-5.70) Hemoglobin 14.8 g/dL (13.0-17.5) Hematocrit 47.4 % (39.0-53.0) Mean Corpuscular Volume 74 fL (79-100) Mean Corpuscular Hemoglobin 23 pg (25-35) Mean Corpuscular Hemoglobin Concent 31 g/dL (31-37) Red Cell Distribution Width 15.2 % (11.5-14.5) Platelet Count 243 x10^3/uL (140-400) Neutrophils (%) (Auto) 67 % (31-73) Lymphocytes (%) (Auto) 17 % (24-48) Monocytes (%) (Auto) 7 % (0-9) Eosinophils (%) (Auto) 9 % (0-3) Basophils (%) (Auto) 1 % (0-3) Neutrophils # (Auto) 4.3 x10^3/uL (1.8-7.7) Lymphocytes # (Auto) 1.1 x10^3/uL (1.0-4.8) Monocytes # (Auto) 0.4 x10^3/uL (0.0-1.1) Eosinophils # (Auto) 0.6 x10^3/uL (0.0-0.7) Basophils # (Auto) 0.0 x10^3/uL (0.0-0.2) D-Dimer (Kitty) 0.39 ug/mlFEU (0.00-0.50) Sodium Level 143 mmol/L (136-145) Potassium Level 4.0 mmol/L (3.5-5.1) Chloride Level 105 mmol/L (98-107) Carbon Dioxide Level 29 mmol/L (21-32) Anion Gap 9 (6-14) Blood Urea Nitrogen 18 mg/dL (8-26) Creatinine 1.2 mg/dL (0.7-1.3) Estimated GFR (Cockcroft-Gault) 87.9 BUN/Creatinine Ratio 15 (6-20) Glucose Level 77 mg/dL (70-99) Lactic Acid Level 3.5 mmol/L (0.4-2.0) 6.8 mmol/L (0.4-2.0) 1.8 mmol/L (0.4-2.0) Calcium Level 9.4 mg/dL (8.5-10.1) Total Bilirubin 0.4 mg/dL (0.2-1.0) Aspartate Amino Transf (AST/SGOT) 23 U/L (15-37) Alanine Aminotransferase (ALT/SGPT) 37 U/L (16-63) Alkaline Phosphatase 57 U/L (46-116) Total Protein 8.3 g/dL (6.4-8.2) Albumin 3.9 g/dL (3.4-5.0) Albumin/Globulin Ratio 0.9 (1.0-1.7) Urine Collection Type Unknown Urine Color Yellow Urine Clarity Clear Urine pH 6.0 (<5.0-8.0) Urine Specific [place] >=1.030 (1.000-1.030) Urine Protein Negative mg/dL (NEG-TRACE) Urine Glucose (UA) Negative mg/dL (NEG) Urine Ketones (Stick) 15 mg/dL (NEG) Urine Blood Negative (NEG) Urine Nitrite Negative (NEG) Urine Bilirubin Negative (NEG) Urine Urobilinogen Dipstick 0.2 mg/dL (0.2 mg/dL) Urine Leukocyte Esterase Negative (NEG) Urine RBC 0 /HPF (0-2) Urine WBC 0 /HPF (0-4) Urine Squamous Epithelial Cells Few /LPF Urine Bacteria 0 /HPF (0-FEW) Urine Mucus Slight /LPF Urine Opiates Screen Neg (NEG) Urine Methadone Screen Neg (NEG) Urine Barbiturates Neg (NEG) Urine Phencyclidine Screen Neg (NEG) Urine Amphetamine/Methamphetamine Neg (NEG) Urine Benzodiazepines Screen Neg (NEG) Urine Cocaine Screen Neg (NEG) Urine Cannabinoids Screen Pos (NEG) Urine Ethyl Alcohol Neg (NEG) Laboratory Tests Test 08/25/20 18:10 08/26/20 02:49 08/26/20 10:23 Lactic Acid Level 6.8 mmol/L (0.4-2.0) 1.8 mmol/L (0.4-2.0) Urine Collection Type Unknown Urine Color Yellow Urine Clarity Clear Urine pH 6.0 (<5.0-8.0) Urine Specific [place] >=1.030 (1.000-1.030) Urine Protein Negative mg/dL (NEG-TRACE) Urine Glucose (UA) Negative mg/dL (NEG) Urine Ketones (Stick) 15 mg/dL (NEG) Urine Blood Negative (NEG) Urine Nitrite Negative (NEG) Urine Bilirubin Negative (NEG) Urine Urobilinogen Dipstick 0.2 mg/dL (0.2 mg/dL) Urine Leukocyte Esterase Negative (NEG) Urine RBC 0 /HPF (0-2) Urine WBC 0 /HPF (0-4) Urine Squamous Epithelial Cells Few /LPF Urine Bacteria 0 /HPF (0-FEW) Urine Mucus Slight /LPF Urine Opiates Screen Neg (NEG) Urine Methadone Screen Neg (NEG) Urine Barbiturates Neg (NEG) Urine Phencyclidine Screen Neg (NEG) Urine Amphetamine/Methamphetamine Neg (NEG) Urine Benzodiazepines Screen Neg (NEG) Urine Cocaine Screen Neg (NEG) Urine Cannabinoids Screen Pos (NEG) Urine Ethyl Alcohol Neg (NEG) Allergies Allergies Coded Allergies Type Severity Reaction Last Updated Verified No Known Drug Allergies 08/25/20 No Disposition/Orders: D/C to Home Justicifation of Admission Dx: Justifications for Admission: Justification of Admission Dx: No ERENDIRA CARTER MD Aug 26, 2020 11:57
[2020-08-26] MEDS ORDERED: PRED50TA PO (11:59)
[2020-08-26] MEDS ORDERED: ALBU2.5V8 NEB (11:59)
[2020-08-26] MEDS ORDERED: AZIT500T4 PO (12:00)
--- NOTE | 2020-08-26 12:01 | DISCH ---
DISCHARGE INSTRUCTIONS Condition on Discharge Condition on Discharge: Stable Activity After Discharge Activity Instructions for Disc: Activity as tolerated Driving Instructions after Dis: Do not drive today Diet after Discharge Diet after Discharge: Regular Liquid Texture: Thin Liquid Checks after Discharge Checks after discharge: Check blood press - daily Contacting the DRHarley after DC Call your doctor for: If your condition worsens Follow-Up Follow up with: SEE YOUR PCP IN 2-3 DAYS ERENDIRA CARTER MD Aug 26, 2020 12:01
--- NOTE | 2020-08-26 13:33 | NUR ---
Pt left unit at 1330. Pt was read discharge instructions, IV take out, and heart monitor taken off. Pt's labs and vital signs are WNL. Pt left unit stable.
--- NOTE | 2020-08-26 16:58 | NUR ---
SW following for discharge planning. SW spoke with RN and reviewed chart. Pt discharged self-care with no SW needs.
--- NOTE | 2020-08-27 12:20 | NUR ---
IP:Attempted to contact pt concerning COVID results. No answer. Left a voicemail to return the call.
== END 2020-08-26 13:30 | disposition home or self-care (01) | DRG 202 ==
LOC: ER 11:31 → 6 SOUTH 13:20
PROVIDERS: ADMIT Family Medicine; ATTEND Family Medicine
DX: J45.902 Unspecified asthma with status asthmaticus (principal); I47.1 Supraventricular tachycardia; E87.2 Acidosis; E86.0 Dehydration; Z20.822 Contact with and (suspected) exposure to COVID-19; Z82.49 Family history of ischemic heart disease and other diseases of the circulatory system; Z87.09 Personal history of other diseases of the respiratory system
CPT/HCPCS: 36415; 71045; 80053; 80307; 81001; 83605; 85025; 85379; 87040; 94640; 99285; J0456; J1650; J2930; J7030; J7050; J7512; U0003; G0378; J7613

== ENCOUNTER 2021-11-05 09:15 | Emergency (ER) | payer OTHER ==
[~2021-11-05] VITALS: Ht 175.3 cm; Wt 90.4 kg
[~2021-11-05 09:15] MED LIST: ALBU2.5V8 NEB; AZIT500T4 PO; PRED50TA PO
[2021-11-05] MEDS ORDERED: PRED20TA PO (10:31)
--- NOTE | 2021-11-05 10:31 | PHYS DOC ---
Past Medical History Past Medical History: Asthma Past Surgical History: No Surgical History Smoking Status: Never Smoker Alcohol Use: None General Adult EDM: Chief Complaint: FACE PROBLEM HPI: HPI: Patient is a 26 year old male who presents with left-sided cheek swelling. Patient states he noticed symptoms started last night after he took Advil. Denies trauma. Denies pain. No signs of drainage, warmth, redness. No fever. No shortness of breath. Patient states that swelling has improved since last night. Patient is able to manage his own secretions. No trismus. No oral e xudates. History of asthma. Denies tobacco or drug use. Patient has not been vaccinated for Covid. Review of Systems: Review of Systems: ROS At least 10 ROS systems have been reviewed and are negative except as documented in the HPI. General: Negative except as outlined in HPI above. Skin: Negative except as outlined in HPI above. HEENT: Negative except as outlined in HPI above. Neck: Negative except as outlined in HPI above. Respiratory: Negative except as outlined in HPI above.. Cardiovascular: Negative except as outlined in HPI above. Abdomen: Negative except as outlined in HPI above. : Negative except as outlined in HPI above. Back/MSK: Negative except as outlined in HPI above. Neuro: Negative except as outlined in HPI above. Psych: Negative except as outlined in HPI above. Heart Score: C/O Chest Pain: No Risk Factors: Risk Factors: DM, Current or recent (<one month) smoker, HTN, HLP, family history of CAD, obesity. Risk Scores: Score 0 - 3: 2.5% MACE over next 6 weeks - Discharge Home Score 4 - 6: 20.3% MACE over next 6 weeks - Admit for Clinical Observation Score 7 - 10: 72.7% MACE over next 6 weeks - Early Invasive Strategies Allergies: Allergies: Allergies Uncoded Allergies Type Severity Reaction Last Updated Verified CARROTS Allergy Mild itching 11/05/21 Physical Exam: PE: Constitutional: Well-developed, no acute distress, nontoxic appearance. HENT: Mild swelling to left lower cheek, no redness or warmth to the area, no drainage. No signs of dental decay or trismus Eyes: PERRLA, EOMI, conjunctiva normal, no discharge. [] Neck: Normal range of motion, no tenderness, no stridor or voice changes Cardiovascular:Heart rate regular rhythm, no murmur [] Lungs & Thorax: Bilateral breath sounds clear to auscultation [] Abdomen: Bowel sounds normal, soft, no tenderness Skin: Warm, dry, no erythema, no rash. [] Back: No tenderness, no CVA tenderness. [] Extremities: No tenderness, no cyanosis, no clubbing, ROM intact, no edema. [] Neurologic: Alert and oriented X 3, normal motor function, normal sensory function, no focal deficits noted. [] Psychologic: Affect normal, judgement normal, mood normal. [] Current Patient Data: Vital Signs: Vital Signs Date Time Temp Pulse Resp B/P (MAP) Pulse Ox O2 Delivery O2 Flow Rate FiO2 11/05/21 09:23 97.9 86 18 116/62 (80) 98 Room Air 97.9 EKG: EKG: [] Radiology/Procedures: Radiology/Procedures: [] Course & Med Decision Making: Course & Med Decision Making Pertinent Labs and Imaging studies reviewed. (See chart for details) [] 18-year-old male presents with complaints of left, lower facial swelling. Patient reports that he noticed the swelling last night. Denies pain, no trauma. No signs of infection or trismus. Afebrile. Patient states that he took ibuprofen last night and that is when he noticed the swelling had started. Patient denies having a reaction to ibuprofen in the past. Denies shortness of breath or trouble maintaining secretions. No redness or signs of tonsillar swelling, no oral exudates seen. Discussed return precautions in length with patient. Advised patient to stop taking ibuprofen . Patient sent home with a prescription for prednisone. Patient verbalizes understanding of discharge instructions. Patient is hemodynamically stable upon disposition. [place] Disclaimer: Sandra Disclaimer: This electronic medical record was generated, in whole or in part, using a voice recognition dictation system. Departure Departure Impression: Primary Impression: Swelling of left side of face Disposition: HOME / SELF CARE / HOMELESS Condition: STABLE Referrals: NO PCP (PCP) Additional Instructions: You are seen the emergency room for concerns of left-sided facial swelling. Please return to the emergency room if you have shortness of breath, pain, trouble maintaining your own secretions, inability to open your jaw or any worsening symptoms. EMERGENCY DEPARTMENT GENERAL DISCHARGE INSTRUCTIONS Thank you for coming to [facility] Emergency Department (ED) today and trusting us with you care. We trust that you had a positive experience in our Emergency Department. If you wish to speak to the department management, you may call the Director at [phone]. YOUR FOLLOW UP INSTRUCTIONS ARE FOLLOWS: 1. Do you have a private Doctor? If you do not have a private doctor, please ask for a resource list of physicians or clinics that may be able to assist you with follow up care. 2. The Emergency Physicain has interpreted your x-rays. The X-Ray specialist will also review them. If there is a change in the findings, you will be notified in 48 hours when at all possible. 3. A lab test or culture has been done, your results will be reviewed and you will be notified if you need a change in treatment. ADDITIONAL INSTRUCTIONS AND INFORMATION: 1. Your care today has been supervised by a physician who is specially trained in emergency care. Many problems require more than one evaluation for a complete diagnosis and treatment. We recommend that you schedule your follow up appointment as recomm ended to ensure complete treatment of you illness or injury. If you are unable to obtain follow up care and continue to have a problem, or if your condition worsens, we recommend that you return to the ED. 2. We are not able to safely determine your condition over the phone nor are we able to give sound medical advice over the phone. For these safety reasons, if you call for medical advice we will ask you to come to the ED for further evaluation. 3. If you have any questions regarding these discharge instructions please call the ED at [phone]. SAFETY INFORMATION: In the interest of safety, wellness, and injury prevention; we encourage you to wear your sealbelt, if you smoke; quite smoking, and we encourage family to use a protective helmet for bicycling and other sporting events that present an increased risk for head injury. IF YOUR SYMPTOMS WORSEN OR NEW SYMPTOMS DEVELOP, OR YOU HAVE CONCERNS ABOUT YOUR CONDITION; OR IF YOUR CONDITION WORSENS WHILE YOU ARE WAITING FOR YOUR FOLLOW UP APPOINTMENT; EITHER CONTACT YOUR PRIMARY CARE DOCTOR, THE PHYSICIAN WHOSE NAME AND NUMBER YOU WERE GIVEN, OR RETURN TO THE ED IMMEDIATELY. Scripts Prednisone (PREDNISONE) 20 Mg Tablet 2 TAB PO DAILY for swelling for 5 Days, #10 TAB Prov: BEBE ISAACS APRN 11/05/21 BEBE ISAACS APRN Nov 05, 2021 10:31
[2021-11-05 11:13] VITALS: BP 112/66
== END 2021-11-05 11:13 | disposition home or self-care (01) ==
LOC: ER 09:15
DX: R22.0 Localized swelling, mass and lump, head (principal); J45.909 Unspecified asthma, uncomplicated; Z91.018 Allergy to other foods
CPT/HCPCS: 99281